=== PATIENT | female | born 1990 | race Caucasian/White ===

== ENCOUNTER 2017-10-07 08:00 | Inpatient (IN) | payer BC, OTHER ==
[2017-10-07] MEDS ORDERED: SERTRALINE HCL100 MG PO (11:44)
[2017-10-07] MEDS ORDERED: FLINTSTONES1 EAC1 (11:45)
--- NOTE | 2017-10-08 07:34 | PR ---
[facility] [address] [place] [address] Signed PP Progress Notes Datetime Report Generated by CPN: 10/08/2017 07:34 SUBJECTIVE: [id number] Pain: Within normal limits Nausea/Vomiting: Denies Vital Signs: [id number] Vital Signs: Reviewed; Within Normal Limits EXAM: [id number] Cardiovascular: Not Done Respiratory: Not Done Abdomen/Uterus: Abnormal Lochia: Normal Vulva/Perineum: Not Done Breasts: Not Done CVA Tenderness: Not Done Extremities: Normal Incision: Not Applicable Progress: Abnormal Exam Comments: Fundus firm, NT @ U-1. H/H 12.1/34.8, WBC 11, plat 235k IMPRESSION/PLAN/PROCEDURES: [id number] Impression: Normal progression Plan: Continue present management; consult Progress Notes: Doing well other than her breast feeding. Signing Physician: Maris Moon MD CC: *Electronically Signed* 10/08/17 0734 MARIS MOON MD PATIENT NAME: ELVIN HASSAN PROGRESS NOTE DATE OF : 89 PHYSICIAN: MARIS MOON MD RPT #: [id number] REPORT IS CONFIDENTIAL AND NOT TO BE RELEASED WITHOUT AUTHORIZATION
== END 2017-10-09 10:45 | disposition home or self-care (01) | DRG 775 ==
LOC: FBCO 08:00 → FBC 08:20
PROVIDERS: ADMIT Obstetrics & Gynecology
PROC: 10E0XZZ Delivery of Products of Conception, External Approach (ICD-10-PCS; principal; 2017-10-07)
PROC: 0KQM0ZZ Repair Perineum Muscle, Open Approach (ICD-10-PCS; 2017-10-07)
PROC: 10907ZC Drainage of Amniotic Fluid, Therapeutic from Products of Conception, Via Natural or Artificial Opening (ICD-10-PCS; 2017-10-07)
PROC: 0UQMXZZ Repair Vulva, External Approach (ICD-10-PCS; 2017-10-07)
DX: O36.5130 Maternal care for known or suspected placental insufficiency, third trimester, not applicable or unspecified (principal); Z3A.37 37 weeks gestation of pregnancy; Z37.0 Single live birth; O71.82 Other specified trauma to perineum and vulva; O70.1 Second degree perineal laceration during delivery
CPT/HCPCS: 36415; 83030; 85027; 86850; 86900; 86901; J2590; J2790

== ENCOUNTER 2019-05-25 10:33 | Emergency (ER) | payer OTHER ==
[~2019-05-25] VITALS: Ht 175.3 cm; Wt 90.7 kg
[~2019-05-25 10:33] MED LIST: FLINTSTONES1 EAC1; SERTRALINE HCL100 MG PO
[2019-05-25] MEDS ORDERED: LOMOTIL TABLET1 EACH PO (12:47)
[2019-05-25] MEDS ORDERED: ZOFRAN4 MG PO (12:47)
== END 2019-05-25 12:57 | disposition home or self-care (01) ==
LOC: ED 10:33
DX: K52.9 Noninfective gastroenteritis and colitis, unspecified (principal)
CPT/HCPCS: 80053; 81001; 83690; 84703; 85025; 96361; 96374; 96375; 99284-25; J2270; J2405; J7030

== ENCOUNTER 2023-10-05 19:16 | Emergency (ER) | payer OTHER ==
[~2023-10-05] VITALS: Ht 175.3 cm; Wt 106.0 kg
[~2023-10-05 19:16] MED LIST changes: +LOMOTIL TABLET1 EACH PO; +ZOFRAN4 MG PO
[2023-10-05 19:42] LABS: BASOPHILS 0.5 % (0-2); EOSINOPHILS 0.9 % (0-6); HEMATOCRIT 43.6 % (35.0-50.0); HEMOGLOBIN 14.8 g/dL (12.0-18.0); LYMPHOCYTES 7.6 % (24-44); MCH 28.2 (27-36); MCHC 33.9 g/dl (30-36); MONOCYTES 6.6 % (0-12); NEUTROPHILS 84.4 % (39-80); PLATELET COUNT 266 K/uL (140-440); RBC 5.26 M/ul (4.3-5.7); RDW 12.9 (10.5-15.0)
[2023-10-05 19:45] LABS: BILIRUBIN, URINE NEGATIVE (negative); BLOOD/HGB, URINE TRACE-I (Negative); KETONE, URINE NEGATIVE (Negative); LEUK ESTERASE, URINE NEGATIVE (negative); NITRITE, URINE NEGATIVE (negative); PH, URINE 5.5 (5-7)
[2023-10-05 19:50] LABS: BACTERIA, URINE RARE /hpf (negative); CASTS, URINE NONE SEEN \\lpf; COLLECTION TYPE, URINE CLEAN CATCH; CRYSTALS, URINE NONE SEEN (0-1+); EPITHELIAL CELLS, URINE SQUAMOUS 3+ /lpf (0-1+); RED BLOOD CELLS, URINE 0-1 /hpf (0-5); REFLEX CULTURE, URINE No (No)
[2023-10-05 19:53] LABS: ALBUMIN 4.2 g/dL (3.4-5.0); ALBUMIN/GLOBULIN RATIO 1.14 (1.1-2.4); ANION GAP 14.6 (7-21); BILIRUBIN, TOTAL 0.5 ng/dL (0.2-1.0); BUN/CREATININE RATIO 8.42 (6.0-28.6); CALCIUM 9.5 mg/dL (8.5-10.1); CREATININE, SERUM 0.95 mg/dL (0.55-1.02); POTASSIUM 3.6 mmol/L (3.5-5.1); PROTEIN, TOTAL 7.9 g/dL (6.4-8.2)
[2023-10-05 20:45] VITALS: BP 140/94
[2023-10-06] MEDS ORDERED: SERTRALINE HCL50 MG PO (08:59)
[2023-10-06] MEDS ORDERED: PREDNISONE20 MG PO (10:52)
== END 2023-10-05 20:47 | disposition home or self-care (01) ==
LOC: ED 19:16
PROVIDERS: Internal Medicine
DX: S39.012A Strain of muscle, fascia and tendon of lower back, initial encounter (principal); X58.XXXA Exposure to other specified factors, initial encounter; Z79.899 Other long term (current) drug therapy
CPT/HCPCS: 36415; 74176; 80053; 81001; 83690; 84703; 85025; 96374; 96375; 99284-25; A9270; J1170; J2405; J7121

== ENCOUNTER 2023-10-06 08:46 | Emergency (ER) | payer OTHER ==
[~2023-10-06] VITALS: Ht 175.3 cm; Wt 106.6 kg
--- OUTSIDE RECORDS SUMMARY | 2023-10-06 08:49 | XMS ---
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 Jane VISIT COUNT (12 MO.) 2 [facility] TOTAL 2 NOTE: Visits indicate total known visits. ED/UCC VISIT TRACKING (12 MO.) 10/06/2023 08:47 [facility] TYPE: Emergency COMPLAINT: - LOWER BACK PAIN 10/05/2023 19:17 [facility] TYPE: Emergency COMPLAINT: - FLANK PAIN INPATIENT VISIT TRACKING (12 MO.) No inpatient visits to display in this time frame [email or web address]
[2023-10-06] MEDS ORDERED: SERTRALINE HCL50 MG PO (08:59)
[2023-10-06] MEDS ORDERED: PREDNISONE20 MG PO (10:52)
[2023-10-06 10:58] VITALS: BP 131/87
== END 2023-10-06 10:59 | disposition home or self-care (01) ==
LOC: ED 08:46
DX: M54.50 Low back pain, unspecified (principal); Z79.899 Other long term (current) drug therapy
CPT/HCPCS: 96374; 96375; 99283-25; J1100; J1885

== ENCOUNTER 2025-03-20 17:13 | Emergency (ER) | payer OTHER ==
[~2025-03-20] VITALS: Ht 175.3 cm; Wt 109.9 kg
[~2025-03-20 17:13] MED LIST changes: +PREDNISONE20 MG PO; +SERTRALINE HCL50 MG PO
[2025-03-20] MEDS ORDERED: ZYRTEC10 MG PO (17:29)
[2025-03-20] MEDS ORDERED: DULOXETINE HCL60 MG PO (17:29)
[2025-03-20] MEDS ORDERED: FLINTSTONES M300 MCG PO (17:30)
[2025-03-20] MEDS ORDERED: FAMOTIDINE 20 MG/ 2 ML VIAL IV ONE (17:45)
[2025-03-20] MEDS ORDERED: diphenhydrAMINE HCL 50 MG/ML VIAL IV ONE (17:45)
[2025-03-20] MEDS ORDERED: SODIUM CHLORIDE 0.9% 1,000 ML IV PRN (17:45)
[2025-03-20 19:15] VITALS: BP 115/70
== END 2025-03-20 19:16 | disposition home or self-care (01) ==
LOC: ED 17:13
DX: L50.0 Allergic urticaria (principal); T38.0X5A Adverse effect of glucocorticoids and synthetic analogues, initial encounter; Z79.899 Other long term (current) drug therapy
CPT/HCPCS: 96374; 96375; 99283-25; J1200; J7030

== ENCOUNTER 2025-07-30 11:48 | Emergency (ER) | payer OTHER ==
[~2025-07-30] VITALS: Ht 175.3 cm; Wt 96.7 kg
[~2025-07-30 11:48] MED LIST changes: +DULOXETINE HCL60 MG PO; +FLINTSTONES M300 MCG PO; +ZYRTEC10 MG PO
[2025-07-30] MEDS ORDERED: PHENTERMINE H37.5 MG PO (12:10)
[2025-07-30] MEDS ORDERED: RIZATRIPTAN10 M1 PO (12:10)
[2025-07-30] MEDS ORDERED: SODIUM CHLORIDE 0.9% 500 ML IV ONE (12:30)
[2025-07-30 12:31] LABS: BASOPHILS 1.4 % (0.1-1.2); EOSINOPHILS 2.4 % (0.7-5.8); LYMPHOCYTES 33.2 % (19.3-51.7); MCH 28.6 PG (25.6-32.2); MCHC 33.6 g/dL (32.2-35.5); MCV 85.2 fL (79.4-94.8); MONOCYTES 5.9 % (4.7-12.5); NEUTROPHILS 56.8 % (34.0-71.1); RBC 4.93 M/uL (3.93-5.22)
[2025-07-30 12:47] LABS: ALT (SGPT) 13.0 U/L (14-59); AST (SGOT) 15.0 U/L (15-37); GLOMERULAR FILTRATION RATE,EST 108.0 mL/min (>60); PROTEIN, TOTAL 7.1 g/dL (6.4-8.2); UREA NITROGEN 9.0 mg/dL (7-18)
[2025-07-30 13:19] LABS: BLOOD/HGB, URINE NEGATIVE (Negative); KETONE, URINE TRACE (Negative); LEUK ESTERASE, URINE NEGATIVE (negative); NITRITE, URINE NEGATIVE (negative)
[2025-07-30] MEDS ORDERED: AMOX TR-K CLV1 EAC1 PO (15:12)
[2025-07-30] MEDS ORDERED: OMEPRAZOLE20 MG PO (15:12)
[2025-07-30] MEDS ORDERED: ONDANSETRON ODT4 MG PO (15:12)
[2025-07-30] MEDS ORDERED: PEPCID20 MG PO (15:12)
[2025-07-30 15:33] VITALS: BP 115/81
== END 2025-07-30 15:33 | disposition home or self-care (01) ==
LOC: ED 11:48
PROVIDERS: Emergency Medicine
DX: R19.7 Diarrhea, unspecified (principal); Z79.899 Other long term (current) drug therapy; Z88.8 Allergy status to other drugs, medicaments and biological substances
CPT/HCPCS: 36415; 74177; 80053; 81003; 83735; 84703; 85025; 99284-25; J7040; Q9967